=== PATIENT | female | born 1950 | race Caucasian/White ===

== ENCOUNTER 2025-04-15 09:37 | Outpatient (AMB) | payer MEDICARE, SELFPAY ==
--- OUTSIDE RECORDS SUMMARY | 2024-07-12 14:42 | XMS_ITS | Encounter Summary ---
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 Not on angel e 07/01/2024 Are you concerned about learning? Not on file 07/01/2024 No 07/01/2024 No 07/01/2024 Digital Access Answer Date Recorded No 07/01/2024 No 07/01/2024 Reliable internet access at home? Not on file 07/01/2024 Device with a working camera? Not on file Comments Unknown Sex and Gender Information Value Date Recorded Sex Assigned at Not on file Legal Sex Female 5:05 PM EST Gender Identity Not on file Sexual Orientation Not on file documented as of this encounter Plan of Treatment Not on file documented as of this encounter Procedures Procedure Name Priority Date/Time Associated Diagnosis Comments XR CHEST PA AND LATERAL 2 VIEWS Urgent/patient waiting 07/12/2024 3:49 PM EDT Viral upper respiratory tract infection with cough documented in this encounter Results * XR CHEST PA AND LATERAL 2 VIEWS (07/12/2024 3:49 PM EDT) Anatomical Region Laterality Modality Chest Computed Radiogr aphy 07/12/2024 4:00 PM EDT Impressions 07/12/2024 4:01 PM EDT No acute abnormality. Narrative 07/12/2024 4:01 PM EDT XR CHEST PA AND LATERAL 2 VIEWS Referring clinician's provided indication for this examination in [facility]: Cough; cough for a week, sob on exertion. states she sounds like a donkey COMPARISON: None FINDINGS: Devices/Tubes/Lines: None. Lungs: Biapical scarring. No focal consolidation or pulmonary edema. Pleura: No pleural effusion or pneumothorax. Heart/Mediastinum: Normal heart size. Bones/Soft Tissues: Prior right shoulder arthroplasty. Dextroscoliosis. Procedure Note Susan Mishra MD - 07/12/2024 XR CHEST PA AND LATERAL 2 VIEWS Referring clinician's provided indication for this examination in [facility]:Cough; cough for a week, sob on exertion. states she sounds like adonkey COMPARISON: None FINDINGS: Devices/Tubes/Lines: None. Lungs: Biapical scarring. No focal consolidation or pulmonary edema. Pleura: No pleural effusion or pneumothorax. Heart/Mediastinum: Normal heart size. Bones/Soft Tissues: Prior right shoulder arthroplasty. Dextroscoliosis. IMPRESSION: No acute abnormality. us Lanie Lala TOBACCO STRIPPER IMG XR CHEST Final Resul t documented in this encounter Visit Diagnoses Not on filedocumented in this encounter Care Teams Rail Car Welder Relationship Specialty Start Date End Date Pcp, Unknown PCP - General 07/01/24 DECLINES giving PCP information Primary Care Physician 07/01/24 documented as of this encounter Additional Source Comments The information contained in this document represents components of the legal health record. It is not the complete legal health record.[facility]
--- NOTE | 2025-04-15 09:43 | A.OFFPC_ITS ---
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: No Accompanied by: Self / Same As Patient Allergies No Known Allergies Allergy (Verified 04/15/25 09:48) Medication List - Last Reconciled 04/15/25 by Tesha Castorena MD No Known Home Meds Tobacco use date assessed: 04/15/25 Fall risk assessment: No Falls in past year Last assessed Fall Risk: 04/15/25 Dental Screening Dental Screen Date: 04/15/25 Did you have a dental visit in the last 12 months?: Yes Did you have a dental problem in the last 6 months where you did not have access to dental care?: No Was dental information given to patient?: Patient has dentist HPI HPI Comments History of Present Illness Details The patient is a 74 year old female presenting for an establishment of care and annual wellness visit. Health Risk Assessment completed. No cognitive deficits, no opioid use. Able to do clock draw. Health Maintenance: The patient is establishing care as her prior primary care provider of 20 years has retired. Her last mammogram was several years ago and her last Cologuard test was over five years ago. She has a history of fibrocystic breasts, which previously required ultrasound evaluation along with mammography. She has a history of breast cysts when she was younger that resolved after menopause. She declines a colonoscopy but is agreeable to Cologuard screening. Her last bone density scan was approximately 20 years ago. Heart Murmur: The patient had a heart murmur as a child. A few years ago, she was sent to a diesel engine operator due to an irregular EKG, which was ultimately attributed to an artifact. Her father had an aortic valve replacement. Osteoarthritis: The patient has a history of severe arthritis. She undergoes cortisone injections in her knees every three months for management. She had a total right shoulder replacement in 2008 for her shoulder arthritis. She describes her pain as zero to very mild and dependent on the weather. Chronic venous insufficiency: The patient has a history of venous insufficiency in her legs, for which she has had ablations and undergoes sclerotherapy injections every few years for maintenance. Medical History: - Arthritis - Venous insufficiency - Fibrocystic breast disease with a hist ory of breast cysts requiring drainage prior to menopause - Erb's palsy of the left arm, congenita l - History of reactive airways Surgical History: - Total right shoulder replacement - Several foot surgeries for bunion and toe realignment - Venous ablations for venous insufficie ncy Medications: - The patient reports she is on no curre nt medications. Social History: - Alcohol Use: Reports drinking one to t wo alcoholic beverages on holidays or when out to dinner, denies consistent use. - Tobacco Use: Denies smoking. - Exercise: Reports she is active but do es not go to a gym. - Occupation: She is retired from a 22-y ear career at [employer]. - Family and Social Support: She has quinn ghters, grandchildren, and great-grand children. - Functional Status: She is independent in all activities of daily living, including shopping, preparing meals, and housework. - Driving: She drives without any diffic ulty and always wears a seatbelt. Family History: - Mother: Hypertension and hyperlipidemi a in her 80s. - Father: Hypertension, prostate cancer, and history of aortic valve replacement. - Paternal Aunt: Colon cancer. - Paternal Grandmother: History of a bag shop worker ecological cancer, either ovarian or cervical. - Maternal Grandfather: Lung cancer with a history of smoking. - Daughter: Diabetes. Diagnostic Results: - Screening Questionnaires: PHQ-9 score was 0 and PRASHANTH-7 score was 0. - Cognitive Screen: Clock-drawing test w as normal. [facility] Medical History (Updated 04/15/25 @ 17:44 by Tesha Castorena MD) Family history of aortic valve disorder Murmur Venous insufficiency Asymptomatic postmenopausal state Osteoarthritis Routine medical exam History of cyst of breast Screening mammogram for breast cancer Surgical History (Updated 04/15/25 @ 10:37 by Tesha Castorena MD) History of right shoulder replacement H/O foot surgery Family History (Updated 04/15/25 @ 10:26 by Tesha Castorena MD) Paternal Aunt Colon cancer Maternal Grandfather Lung cancer Other Aortic valve replaced Gynecologic cancer Mixed hyperlipidemia Primary hypertension Social History Housing: House Patient Tobacco Use Status: Never used Tobacco e-Cigarette/Vaping Use: Never Used service: No Current occupational status: retired Questionnaire PHQ-9 Over the last 2 weeks, how often have you been bothered by any of the following problems? 1. Little interest or pleasure in doing things: not at all 2. Feeling down, depressed, or hopeless: not at all 3. Trouble falling or staying asleep, or sleeping too much: not at all 4. Feeling tired or having little energy: not at all 5. Poor appetite or overeating: not at all 6. Feeling bad about yourself - or that you are a failure or have let yourself or your family down: not at all 7. Trouble concentrating on things, such as reading the newspaper or watching television: not at all 8. Moving or speaking so slowly that other people could have noticed. Or the opposite - being so fidgety or restless that you have been moving around a lot more than usual: not at all 9. Thoughts that you would be better off or of hurting yourself in some way: not at all Total score: 0 Depression Screening Interpretation: Negative Depression Screening Done: Yes 49608 - PHQ-9 Billing: Yes Source: Developed by Drs. Abran Galvan, Lisseth Holcomb, Fausto Calvert and colleagues, with an educational fermín from [employer]. Thrive Questionnaire Date Thrive assessed: 04/15/25 I am a: Patient What is your living situation today?: I have a steady place to live Within the past 12 months, did the food you bought not last and you didn't have the money to get more?: Never true Within the past 12 months, did you worry whether your food would run out before you got money to buy more?: Never true Do you have trouble paying for medicines?: No Do you have trouble getting transportation to medical appointments?: No Do you have trouble paying your heating and electricity bill?: I choose not to answer this question Do you have trouble taking care of your child, family member or friend?: No Do you have trouble with day-to-day activities such as bathing, preparing meals, shopping, managing finances, etc.?: No Are you currently unemployed and looking for a job?: No Are you interested in more education?: No Please select the resources that you would like help with: None Currently or been in a relationship where the following occur: No concerns reported THRIVE Score: 0 AUDIT C Alcohol Use Questionnaire (AUDIT-C) 1. How often do you have a drink containing alcohol?: Monthly or less 2. How many drinks containing alcohol do you have on a typical day when you are drinking?: 1 or 2 3. How often do you have six or more drinks on one occasion?: Never Total Score: 1 PRASHANTH-7 AMB Questionnaire PRASHANTH-7 Date PRASHANTH - 7 assessed: 04/15/25 Feeling nervous, anxious, or on edge: 0 = Not at all Not being able to stop or control worryin = Not at all Worrying too much about different things: 0 = Not at all Trouble relaxin = Not at all Being so restless that it is hard to sit still: 0 = Not at all Becoming easily annoyed or irritable: 0 = Not at all Feeling afraid as if something awful might happen: 0 = Not at all Total PRASHANTH-7 score (0-4 normal; 5-9 mild; 10-14 moderate; 15-21 severe): 0 Source: Developed by Drs. Abran Galvan, Lisseth Holcomb, Fausto Calvert and colleagues, with an educational fermín from [employer]. Review of Systems Narrative Review of Systems - General: Denies falls. - HEENT: Reports good vision with the use of reading glasses. Denies having dentures. - Cardiovascular: Denies chest pain, shortness of breath, and leg swelling when specifically questioned about these symptoms - Gastrointestinal: Reports difficulty swallowing pills but denies difficulty swallowing food. - Psychiatric: Denies symptoms of depression or anxiety. - Musculoskeletal: Reports zero to very mild pain, which can be weather- dependent. Physical exam (Primary Care) Vital Signs: Last Vital Signs Temp 97.1 F 04/15/25 09:46 Pulse 75 04/15/25 09:46 Resp 16 04/15/25 09:46 BP 124/70 04/15/25 09:46 Pulse Ox 98 04/15/25 09:46 Oxygen Delivery Method Room Air 04/15/25 09:46 BMI result Body Mass Index 22.0 Tobacco/Smoking Status: Tobacco use Status Tobacco use date assessed 04/15/25 04/15/25 09:52 Patient Tobacco Use Status Never used Tobacco 04/15/25 09:52 e-Cigarette/Vaping Use Never Used 04/15/25 09:52 PHQ-9: PHQ-9 Score PHQ-9: Total score 0 04/15/25 10:39 Depression Screening Interpretation: Negative Thrive Assessment: Date of Thrive Assessment Date Thrive assessed 04/15/25 04/15/25 09:52 Currently or been in a relationship where the following occur: No concerns reported Narrative Physical Exam - Gen: NAD - HEENT: Ears are clear. Oropharynx is non-erythematous. - Neck: Carotid arteries are clear to auscultation bilaterally with no bruits. - Lungs: Clear to auscultation bilaterally, no wheezing noted. - Cardiovascular: grade II/ murmur across precordium - Abdomen: Bowel sounds are normal. Abdomen is soft, non-tender, and non- distended. - Extremities: Trace edema is present in the lower extremities. - Neurological: A clock-drawing test was performed correctly. Coding Level of Care Code Add On Preventative Visit Only Diagnoses Routine medical exam Z00.00 Osteoarthritis of multiple joints, unspecified osteoarthritis type M15.9 Osteoarthritis location: multiple joints Osteoarthritis type: unspecified Murmur R01.1 Additional Codes PHQ-9 - 65758 - PHQ-9 Billing: Yes ([id number]) Comment add [id number] SUBSEQUENT ANNUAL WELLNESS VISIT CODE Assessment & Plan Assessment & Plan (1) Routine medical exam: Code(s): Z00.00 - Encounter for general adult medical examination without abnormal findings Category: Medical (2) Osteoarthritis: Code(s): M19.90 - Unspecified osteoarthritis, unspecified site Category: Medical Qualifiers: Osteoarthritis location: multiple joints Osteoarthritis type: unspecified Qualified Code(s): M15.9 - Polyosteoarthritis, unspecified (3) Murmur: Code(s): R01.1 - Cardiac murmur, unspecified Category: Medical Plan Assessment and Plan 1. Annual Wellness Visit/Health Maintenance - The patient is a 74-year-old female establishing care and is due for several health screenings. - Plan includes: a) Ordering fasting labs including a CBC, CMP, thyroid panel, lipid panel, and fasting glucose - b) Ordering a Cologuard test for colon cancer screening, as the patient declines colonoscopy. - c) Ordering a screening mammogram and bilateral breast ultrasound due to her history of fibrocystic breasts. - d) Ordering a bone density (DEXA) scan, indicated due to her age and history of recurrent cortisone injections. 2. Heart Murmur - An echocardiogram will be ordered to establish a baseline and evaluate cardiac valve structure and function. - The patient was educated on warning signs, including chest pain, shortness of breath, and leg swelling. 3. Osteoarthritis and Venous Insufficiency - The patient's chronic conditions, including knee osteoarthritis managed with cortisone shots and venous insufficiency managed with periodic sclerotherapy, appear stable. - She will continue her current management with her respective specialists. - The plan to obtain a DEXA scan is partly to monitor for skeletal side effects of chronic steroid use. 4. Follow-up Care - A follow-up appointment is scheduled in approximately 6 months Plan - Will order fasting labs including CBC, CMP, lipid panel, thyroid panel, and fasting glucose. - Will order a Cologuard kit to be mailed to the patient for colon cancer screening. - Will order a screening mammogram and a bilateral breast ultrasound. - Will order a bone density scan (DEXA). - Will order an echocardiogram to evaluate the heart murmur. Patient Instructions - Please go to the lab to have your blood drawn for the ordered tests. You should fast beforehand. - A Cologuard kit for colon cancer screening will be mailed to you. Please com plete the test and return it as instructed. - Please schedule an appointment for a mammogram, breast ultrasound, and bone density scan. Orders: Orders US breast LT limited Today Z12.31 - Encounter for screening mammogram for malignant neoplasm of breast, Z87.2 - Personal history of diseases of the skin and subcutaneous tissue Complete Blood Count Auto Diff Today Z00.00 - Encounter for general adult medical examination without abnormal findings Lipid Panel Today Z00.00 - Encounter for general adult medical examination without abnormal findings TSH reflex Free T4 Today Z00.00 - Encounter for general adult medical examination without abnormal findings XR DEXA axial skeleton Today Z78.0 - Asymptomatic menopausal state MM screening mammo BI Today Z12.31 - Encounter for screening mammogram for malignant neoplasm of breast US breast RT limited Today Z12.31 - Encounter for screening mammogram for malignant neoplasm of breast, Z87.2 - Personal history of diseases of the skin and subcutaneous tissue Comprehensive Met. Panel Today Z00.00 - Encounter for general adult medical examination without abnormal findings CA echo transthoracic complete Today R01.1 - Cardiac murmur, unspecified, Z82.49 - Family history of ischemic heart disease and other diseases of the circulatory system Referrals Cologuard Test Z12.11 - Encounter for screening for malignant neoplasm of colon, Z12.12 - Encounter for screening for malignant neoplasm of rectum
[2025-04-15 09:46] VITALS: BP 124/70; PULSE 75; RESP 16; TEMP 36.2; O2SAT 98; BMI 22.0
--- OUTSIDE RECORDS SUMMARY | 2025-04-15 11:09 | XMS_ITS | Data Portability ---
Author Organization [facility], [facility] Address [address] [place] [address] Assessment No assessment recorded. Plan of Treatment Reminders Order Date Submit Date Provider Last Modified By Organization Details Last Modified Time Details Appointments RECHECK 15 2025 09:15A Jose London PA-C Not available Not available Not available Lab None recorded . Referral None recorded . Procedures None recorded . Surgeries None recorded . Imaging None recorded . Medication Orders None recorded . Patient TargetsNo targets recorded. Patient InstructionsNo instructions recorded. Reason for Referral None Reported. Problems Name Problem SNOMED Code Status Onset Date Resolution Date Notes Provider Name and Address Organization Details Recorded Time No complaints [id number] Active Status : 'A'; Not Available [facility] 4 09:15:58 Osteoarthr itis of left knee joint 8030969046498 09 Active 2023 Triny Ferguson PA-C [address], [place], [address] , [facility] 4 12:20:05 Osteoarthr itis of right knee joint 2674044974428 00 Active 2023 Triny Ferguson PA-C [address], [place], [address] , [facility] 4 13:44:36 Bilateral osteoarthr itis of knees 0993223222422 07 Active 2023 Triny Ferguson PA-C [address], [place], [address] , [place] - [facility] 11:59:34 Primary gonarthros is, bilateral 756411516 Active 2024 Triny Ferguson PA-C [address], [place], [address] , [facility] 11:38:09 Problem Notes None recorded. Procedures Surgical History Date Name Laterality Status Provider Name and Address Organization Details Recorded Time 5 Knee Kenalog 40 1cc Injection, Bilateral completed Rodrick London PA-C [address], [place], [address], [facility] 02/18/2025 20:54:06 5 Knee Kenalog 40 1cc Injection, Bilateral completed Triny Ferguson PA-C [address], [place], [address], [facility] 11/06/2024 14:23:54 5 Knee Kenalog 40 1cc Injection, Bilateral completed Triny Ferguson PA-C [address], [place], [address], [facility] 08/07/2024 12:46:48 5 Knee Kenalog 40 1cc Injection, Bilateral completed Triny Ferguson PA-C [address], [place], [address], [facility] 05/15/2024 11:37:52 4 Knee Kenalog 40 1cc Injection, Bilateral completed Triny Ferguson PA-C [address], [place], [address], [facility] 02/05/2024 11:59:27 4 Knee Kenalog 40 1cc Injection, Bilateral completed Triny Ferguson PA-C [address], [place], [address], [facility] 11/07/2023 13:45:40 4 Knee Kenalog 40 1cc Injection, Bilateral completed Triny Ferguson PA-C [address] [facility] [address], [place], [address], [facility] - [facility] 08/17/2023 10:27:46 Imaging Results None recorded. Procedure Notes None recorded. Medical Equipment None Reported. Allergies No known drug allergies Medications Name Sig Start Date Stop Date Status Note LastModified by Organization Details LastModified Time amoxicillin 500 mg capsule TAKE 4 CAPSULES ONE HOUR PRIOR TO DENTAL PROCEDURE 08/16 completed Not Available Not Available Not Available amoxicillin 500 mg tablet TAKE 4 TABLETS BY MOUTH 1 HOUR PRIOR TO DENTAL PROCEDURE active Not Available Not Available No t Available oxycodone-a cetaminophe n 5 mg-325 mg tablet TAKE 1 TABLET BY MOUTH EVERY 6 HOURS NEEDED FOR PAIN 02/07 completed Not Available Not Available Not Available cephalexin 500 mg capsule TAKE 1 CAPSULE BY MOUTH TWICE DAILY FOR 7 DAYS active Not Available Not Available No t Available Tylenol 325 mg tablet Take 2 tablets every 6 hours by oral route. active Not Available Not Available No t Available gabapentin 100 mg capsule TAKE 1 CAPSULE BY MOUTH EVERY DAY AT BEDTIME 02/07 completed Not Available Not Available Not Available albuterol sulfate HFA 90 mcg/actuati on aerosol inhaler INHALE 2 PUFFS INTO THE LUNGS EVERY 4 HOURS NEEDED FOR WHEEZING active Not Available Not Available No t Available amoxicillin 500 mg-potassiu m clavulanate 125 mg tablet TAKE 1 TABLET BY MOUTH TWICE DAILY active Not Available Not Available No t Available oxycodone 5 mg tablet TAKE 1 TABLET BY MOUTH EVERY 4 HOURS NEEDED FOR PAIN 08/16 completed Not Available Not Available Not Available nitrofurant oin monohydrate /macrocryst als 100 mg capsule TAKE 1 CAPSULE BY MOUTH TWICE DAILY TAKE PROBIOTIC 2 HOURS AFTER EACH DOSE OF ANTIBIOTI C 02/16 completed Not Available Not Available Not Available oxycodone HCl-oxycodo ne-ASA as directed 1 TALET Q 4 HOURS PRN PAIN DO NOT DRIVE WHILE ON THIS MED 07/31 completed Statu s: 'Disc ontin ued'; Not Available Not Available Not Available Vitals Date Recorded Body height Body mass index (BMI) Body weight Provider Name and Address Organization Details Last Updated DateTime 05/16/2024 177.8 cm 20.9 kg/m2 20306.49 g Vernell osvaldo [facility] 05/16/2024 11:20:14 Date Recorded Body height Body mass index (BMI) Body weight Provider Name and Address Organization Details Last Updated DateTime 08/07/2024 177.8 cm 20.9 kg/m2 32480.49 g Astrid Pedro [facility] 08/07/2024 14:53:32 Date Recorded Body height Body mass index (BMI) Body weight Provider Name and Address Organization Details Last Updated DateTime 11/06/2024 177.8 cm 20.8 kg/m2 05786.89 g PATRICIA CHAVEZ [facility] 11/06/2024 13:49:57 Date Recorded Body height Body mass index (BMI) Body weight Provider Name and Address Organization Details Last Updated DateTime 02/08/2024 177.8 cm 20.9 kg/m2 56109.49 g Vernell richellekeithalis [facility] 02/08/2024 10:50:16 Date Recorded Body height Body mass index (BMI) Body weight Provider Name and Address Organization Details Last Updated DateTime 02/19/2025 177.8 cm 20.8 kg/m2 47950.89 g Rodrick London PA-C [address] [place] [address] [address], [place], [address] 02/19/2025 08:32:40 Social History Question Answer Notes LastModified by [employer] Details LastModified Time Tobacco Smoking Status Never Smoker ANA fulton [facility] 08/17/2023 09:55:30 Have You Ever Been Counseled For Unhealthy Alcohol Use? No Information not available 08/17/2023 What Is Your Relationship Status? Information not available 08/17/2023 Sex: Unknown Functional Status Question Answer Note LastModified by [email or web address] Details LastModified Time How many times per week do you consume alcohol? Less than 1 time per week Information not available 08/17/2023 Do you use any illicit or recreational drugs? No Information not available 08/17/2023 Do you or have you ever used any other forms of tobacco or nicotine? No Information not available 08/17/2023 What is your level of alcohol consumption? Occasional Information not available 08/17/2023 Mental Status None recorded. Family History Nothing Reported. Medical History Condition Response Allergies/Hayfever N Coronary Artery Disease N Anxiety/Depression N Emphysema N Thyroid Problems N COPD N Pacemaker N Anemia N Kidney/Bladder Problems N Vascular Disease N Heart Attack (ND) N Gastrointestinal Disease N Diabetes N Autoimmune disease N Bleeding Disorder N Orthotics N Arthritis Y Seizures/Epilepsy N Blood Clot N AIDS/HIV N Congestive Heart Failure (CHF) N Acid Reflux (GERD) N Cancer N Stroke N Asthma N Peripheral Vascular Disease N Sleep Apnea N Hepatitis N Heart Disease N Rheumatoid Arthritis N Arrhythmia N Pulmonary Embolism N Fibromyalgia N Hypertension N Osteoporosis N Gynecological HistoryNo gynecological history recorded. Obstetrics History GPAL:G 0 P 0 0 0 0 Past Encounters Encounter ID Performer Location Encounter Start Date Encounter Closed Date Diagnosis/Indication Diagnosis SNOMED-CT Code Diagnosis ICD10 Code Diagnosis IMO Codes Diagnosis Note [id number] [facility] [address] [facility] [place] [place] [address] 08/17/2023 09:48:35 09/06/2023 14:12:23 Osteoarthritis of left knee joint 1241679900 71826 M17.12 Nature of the diagnosis discussed with the patient today. Both surgical and nonsurgica l options were reviewed. At this point I have recommende d a repeat cortisone injection. Patient agrees with this plan. Patient tolerated the procedure well. Post injection precaution s reviewed. They will continue with conservati ve modalities including icing and elevating. Follow-up with us in 3 months for discussion of continued conservati ve management versus total joint arthroplas ty. Pain of ri t knee joint [id number] 43932 M25.561 Will perform right knee injection as well today. Has notable right knee osteoarthr itis. Also noted on her previous left knee x-rays. Discussed that if injection does not alleviate her symptoms she is to contact me and schedule follow-up visit for workup of her right knee pain. All questions and concerns were addressed and answered. [id number] WANDA Olea [address] [place] [address] 11/07/2023 13:05:32 12/04/2023 14:29:11 Osteoarthritis of left knee joint [id number] 73838 M17.12 Nature of the diagnosis discussed with the patient today. Both surgical and nonsurgica l options were reviewed. At this point I have recommende d a repeat cortisone injection. Patient agrees with this plan. Patient tolerated the procedure well. Post injection precaution s reviewed. They will continue with conservati ve modalities including icing and elevating. Follow-up with us in 3 months for discussion of continued conservati ve management versus total joint arthroplas ty. Reviewed with her that she has advanced lateral compartmen t right knee osteoarthr itis which has substantia lly progressed since her previous radiograph s. This is likely what is causing her lateral sided right knee pain. She could also have subchondra l insufficie ncy fracture but treatment will remain the same. He recommende d hinged knee brace for stability purposes. Did also discuss utility of employment and claims aide brace for symptomati c relief but she feels that this might be too cumbersome and she would like to try with less invasive hinged knee brace first. Prescripti on was provided today. We did briefly review utility of moving forward with referral for total joint replacemen t but she is not yet ready to pursue this. All questions and concerns were addressed and answered. Osteoarthr itis of right knee joint [id number] 07981 M17.11 [id number] Triny Ferguson PA-C [facility] [address] [place] [address] 02/08/2024 10:43:28 03/05/2024 12:28:38 Bilateral osteoarthritis of knees [id number] 97017 M17.0 Nature of the diagnosis discussed with the patient today. They are having an acute exacerbati on of symptoms including pain, swelling and difficulty participat ing in ADL's. Both surgical and nonsurgica l options were reviewed. Conservati ve treatment options including activity modificati on, low impact exercise program such as swimming, stationary biking, swimming or rowing, physical therapy, NSAIDs, and injections were discussed. At this point patient elects to move forward with a repeat cortisone injection. Patient tolerated the procedure well. Post injection precaution s reviewed. They will continue with conservati ve modalities including icing and elevating. Follow-up with us as symptoms dictate for discussion of continued conservati ve management options versus total joint arthroplas ty. [id number] WANDA Olea [facility] on Clinical [address] [facility] [place] [address] 05/16/2024 11:14:57 05/27/2024 10:03:58 Primary gonarthrosis, bilateral 030659106 M17.0 [id number] Nature of the diagnosis discussed with the patient today. They are having an acute exacerbati on of symptoms including pain, swelling and difficulty participat ing in ADL's. Both surgical and nonsurgica l options were reviewed. Conservati ve treatment options including activity modificati on, low impact exercise program such as swimming, stationary biking, swimming or rowing, physical therapy, NSAIDs, and injections were discussed. At this point patient elects to move forward with a repeat cortisone injection. Patient tolerated the procedure well. Post injection precaution s reviewed. They will continue with conservati ve modalities including icing and elevating. Follow-up with us as symptoms dictate for discussion of continued conservati ve management options versus total joint arthroplas ty. [id number] WANDA Olea [address] [place] [address] 08/07/2024 14:46:09 08/20/2024 10:04:53 Primary gonarthrosis, bilateral [id number] M17.0 [id number] Nature of the diagnosis discussed with the patient today. They are having an acute exacerbati on of symptoms including pain, swelling and difficulty participat ing in ADL's. Both surgical and nonsurgica l options were reviewed. Conservati ve treatment options including activity modificati on, low impact exercise program such as swimming, stationary biking, swimming or rowing, physical therapy, NSAIDs, and injections were discussed. At this point patient elects to move forward with a repeat cortisone injection. Patient tolerated the procedure well. Post injection precaution s reviewed. They will continue with conservati ve modalities including icing and elevating. Follow-up with us as symptoms dictate for discussion of continued conservati ve management options versus total joint arthroplas ty. She has tried various over-the-c ounter remedies for her left SI joint pain and is now to the point where is affecting her ambulation status. Will refer her to [facility] for further workup and considerat ion of injections . [id number] WANDA Olea [address] [place] [place] [address] 11/06/2024 13:45:34 11/17/2024 12:32:47 Bilateral osteoarthritis of knees [id number] 55087 M17.0 Nature of the diagnosis discussed with the patient today. They are having an acute exacerbati on of symptoms including pain, swelling and difficulty participat ing in ADL's. Both surgical and nonsurgica l options were reviewed. Conservati ve treatment options including activity modificati on, low impact exercise program such as swimming, stationary biking, swimming or rowing, physical therapy, NSAIDs, and injections were discussed. At this point patient elects to move forward with a repeat cortisone injection. Patient tolerated the procedure well. Post injection precaution s reviewed. They will continue with conservati ve modalities including icing and elevating. Follow-up with us as symptoms dictate for discussion of continued conservati ve management options versus total joint arthroplas ty. [id number] WANDA R[address] [place] [address] 02/19/2025 08:24:46 03/06/2025 14:48:57 Primary gonarthrosis, bilateral [id number] M17.0 [id number] Health Concerns Section Related Observation LastModified by Organization Detai ls LastModified Time None Recorded Concern Status LastModified by Organization Details LastModified Time None Recorded Advance Directives Directive None Recorded Payers Insurance Date Sequence Insurance Name Policy Number Policy Riggins Covered Member ID Riggins Member ID Guarantor Name 03/06/2025 2 [place] [id number] Korina Kaufman [id number] Korina Kaufman 02/19/2025 1 [place] Korina Bryatnstock [id number] Korina Kaufman 02/16/2025 [employer] - SPECIALITY CLAIMS (MEDICARE DME REGION A) Korina Bryantstock [id number] Korina Kaufman Notes Date Note Type Note Provider Name and Address Organization Details Recorded Time 02/08/2024 text/html ROS as noted in the HPI I am seeing the patient under the general supervision of Dr. Donahue who was available but who did not see the patient. HPI: Patient presents today for recheck of bilateral knee osteoarthritis. Is known to have arthritis treated conservatively with intermittent cortisone injections every 3 months as needed. No new injury or modalaties. Last injection(s) were 11/07/23. She has continued to have intermittent severe lateral sided right knee pain. Triny Ferguson PA-C [address], [place], [address], [facility] 02/08/2024 11:17:10 05/16/2024 text/html ROS as noted in the HPI I am seeing the patient under the general supervision of Dr. Donahue who was available but who did not see the patient. HPI: Patient presents today for recheck of bilateral knee osteoarthritis. Is known to have arthritis treated conservatively with intermittent cortisone injections every 3 months as needed. No new injury or modalaties. Last injection(s) were 02.08.24. She has continued to have intermittent severe lateral sided right knee pain. Triny Ferguson PA-C [address], [place], [address], [facility] 05/16/2024 11:23:50 08/07/2024 text/html ROS as noted in the HPI I am seeing the patient under the general supervision of Dr. Donahue who was available but who did not see the patient. HPI: Patient presents today for recheck of bilateral knee osteoarthritis. Is known to have arthritis treated conservatively with intermittent cortisone injections every 3 months as needed. No new injury or modalaties. Last injection(s) were 05/16/24. She has continued to have intermittent severe lateral sided right knee pain. She is also reporting worsening left sided SI joint pain. HAN OleaC [address], [place], [address], [facility] 08/07/2024 15:31:55 11/06/2024 text/html ROS as noted in the HPI I am seeing the patient under the general supervision of Dr. Donahue who was available but who did not see the patient. HPI: Patient presents today for recheck of bilateral knee osteoarthritis. Is known to have arthritis treated conservatively with intermittent cortisone injections every 3 months as needed. No new injury or modalaties. Last injection(s) were 08/07/24. She has continued to have intermittent severe lateral sided right knee pain. She is also reporting worsening left sided SI joint pain. Triny Ferguson PA-C [address], [place], [address], [facility] 11/06/2024 14:24:35 02/19/2025 text/html I am seeing the patient today under the supervision of Dr. Mon who was available but who did not see the patient. HPI: Patient returns for follow-up of Bilateral knee pain. Patient has known arthritis of the Bilateral knee. The patient has been doing well with conservative treatment. Past family, medical, social history and review of systems has been reviewed, updated and is located in the patient s chart. Examination: The patient is well appearing and in no apparent distress. Alert and oriented x3. Gait is symmetric. Mild swelling of the both knees. Range of motion of the both knees is flexion to 120. Full internal and external rotation of the hips without pain. Peripheral, vascular, lymphatic examination, skin, neurological, coordination, reflexes, sensation are within normal limits. Impression: Bilateral Knee arthritis.. Plan: Reviewed diagnosis with the patient today in the office. Given this amount of arthritis in the knee recommended conservative management. Activity modification discussed. P.r.n. NSAIDs can be used. Discussed role of injection therapies both cortisone and viscosupplementation . Today, injected both the knees with cortisone. Reviewed home exercise program. Patient can return for injections every 3 months if necessary. Briefly discussed the role of total joint arthroplasty if and when conservative management fails and x-ray evaluation worsens. Follow-up p.r.n. Rodrick London PA-C [address], [place], [address], [facility] 02/19/2025 08:58:48 OBGyn Episode No OBEpisode recorded.
--- OUTSIDE RECORDS SUMMARY | 2025-04-15 11:09 | XMS_ITS | Clinical Summary ---
Author Organization [facility] Address [address] [address] Phone Care Team Providers Care Deputy Insurance Commissioner Name Role Phone Pcp, Unknown Primary Care Provider Unavailabl e Allergies Active Allergy Reactions Criticality Noted Date Comments Other 07/12/2024 Other Reaction(s): apricots - SOB Medications albuterol (PROAIR HFA) 90 mcg/actuation inhaler Inhale 2 puffs into the lungs every 4 (four) hours as needed for wheezing. 18 g 5 Active Additional Information Patient not taking.Reported on 12/15/2024 benzonatate (TESSALON) 100 MG capsule Take 2 capsules (200 mg total) by mouth 3 (three) times a day as needed for cough. 21 capsule 5 Active Additional Information Patient not taking.Reported on 12/15/2024 inhaler spacing device (AEROCHAMBER,BR EATHERITE) Spcr Inhale 1 each into the lungs every 4 (four) hours as needed (with inhaler). 1 each 5 Active Additional Information Patient not taking.Reported on 12/15/2024 Active Problems No known active problems Immunizations Immunization Administration Dates Next Due COVID-19 (Pre-02/19) Pfizer Vaccine, mRNA, PF 01/11/2021,12/21/2020 Pneumococcal polysaccharide PPSV23 10/30(Deferred: Other - does not meet criteria) Social History Tobacco Use Types Packs/Day Years Used Date Smoking Tobacco: Never Smokeless Tobacco: Never Tobacco Cessation:Counseling Given: Not Answered Education Answer Date Recorded Are you interested [...] on file Sexual Orientation Not on file Last Filed Vital Signs Vital Sign Reading Time Taken Comments Blood Pressure 123/71 12/15/2024 2:12 PM EDT Pulse 72 12/15/2024 2:12 PM EDT Temperature 36.9 C (98.5 F) 12/15/2024 2:12 PM EDT Respiratory Rate 15 12/15/2024 2:12 PM EDT Oxygen Saturation 99% 12/15/2024 2:12 PM EDT Inhaled Oxygen Concentration - - Weight 65.8 kg (145 lb) 12/15/2024 2:12 PM EDT Height 177.8 cm (5' 10 ) 12/15/2024 2:12 PM EDT Body Mass Index 20.81 12/15/2024 2:12 PM EDT Plan of Treatment Health Maintenance Due Date Last Done Comments Adult Td,Tdap Booster 1950 LIPID PANEL 1950 DEPRESSION SCREENING 1963 HEPATITIS C SCREENING 11/15/1969 COLOGUARD 11/15/1996 COLONOSCOPY 11/15/1996 COLORECTAL CANCER SCREENING 11/15/1996 FIT TEST 11/15/1996 FOBT 11/15/1996 SIGMOIDOSCOPY 11/15/1996 VIRTUAL COLONOSCOPY 11/15/1996 PNEUMOCOCCAL VACCINES (50+ years) (1 of 1 - PCV) 11/15/2001 ZOSTER VACCINES (1 of 2) 11/15/2001 MAMMOGRAM 09/16/2010 09/16/2008 OSTEOPOROSIS SCREENING INITIAL (ONE-TIME) 11/15/2016 INFLUENZA VACCINE (#1) 2024 3, 03/06/2022, 02/18/2021, Additional history exists COVID-19 VACCINE (3 - 2024- season) 2024 01/11/2021, 12/21/2020 RSV VACCINE (1 - 1-dose 75+ series) 11/15/2026 SMOKING STATUS SCREENING (Once After 26 Yrs) Completed 12/15/2024 HEPATITIS A VACCINES Aged Out No long er eligible based on patient's age to complete this topic HIB VACCINES Aged Out No longer eligi ble based on patient's age to complete this topic MENINGOCOCCAL VACCINES (ACWY) Aged Out No longer eligible based on patient's age to complete this topic MENINGOCOCCAL VACCINES (B) Aged Out N o longer eligible based on patient's age to complete this topic Medical Devices Not on file Procedures Procedure Name Priority Date/Time Associated Diagnosis Comments BI MAMMOGRAM OUTSIDE Routine 09/16/2008 4:05 PM EDT from Last 3 Months or Most Recently Relevant to Health Maintenance Insurance MEDICARE PART A & B [employer] SUPPLEMENT MEDICARE PART A & B [place] MED[employer] SUPPLEMENT MEDICARE PART A & B [employer] MED[employer] SUPPLEMENT MEDICARE PART A & B [facility] MEDEX SUPPLEMENT MEDICARE PART A & B [employer] MED[employer] SUPPLEMENT MEDICARE PART A & B [employer] MEDEX SUPPLEMENT Care Teams Deputy Insurance Commissioner Relationship Specialty Start Date End Date Pcp, Unknown PCP - General 07/01/24 DECLINES giving PCP information Primary Care Physician 07/01/24 Additional Source Comments The information contained in this document represents components of the legal health record. It is not the complete legal health record.[facility]
--- OUTSIDE RECORDS SUMMARY | 2025-04-15 11:09 | XMS_ITS | Encounter Summary ---
Author Organization [employer] [facility] Address [address] [facility] [address] [place] [address] Phone Care Team Providers Care Seater Assembler Name Role Phone Pcp, Unknown Primary Care Provider Unavailabl e Encounter Details Date Type Department Care Team (Latest Contact Info) Description 09/20/2024 Ancillary Orders [facility], X-Ray - [address] [address] Michelle Benoit PA [address] [place] [address] [email or web address] Sacrococcygeal disorders, not elsewhere classified (Primary Dx) Social History Tobacco Use Types Packs/Day Years Used Date Smoking Tobacco: Never Assessed Education Answer Date Recorded Are you interested [...] on file documented as of this encounter Results * XR Sacrum and Coccyx (09/20/2024 9:06 AM EDT) Anatomical Region Laterality Modality L-spine Computed Radiogr aphy 09/23/2024 10:4 9 AM EDT Impressions 09/23/2024 10:51 AM EDT No acute displaced fracture or dislocation. Spondylitic changes described above. If there is a clinical concern for disc herniation or spinal canal stenosis MRI can be considered Narrative 09/23/2024 10:51 AM EDT XR LUMBOSACRAL SPINE 4 OR MORE VIEWS, XR SACRUM AND COCCYX Referring clinician's provided indication for this examination in [place]: Pain COMPARISON: None FINDINGS: Lumbar spine: Levoconvex in the upper lumbar spine. There is trace retrolisthesis of L1 on L2. Vertebral body heights are maintained. Mild endplate ossified is seen throughout the lumbar spine. There is diffuse disc space narrowing greatest at L5-S1 and L1-2. Sacrum and coccyx. No acute displaced fracture. There is some air and stool overlying the sacrum and coccyx on frontal view obscured fine bony detail. There are some degenerative changes in the SI joints and pubic symphysis. There are degenerative changes both hips right greater than left Procedure Note Marvel Zuñiga MD - 09/23/2024 XR LUMBOSACRAL SPINE 4 OR MORE VIEWS, XR SACRUM AND COCCYX Referring clinician's provided indication for this examination in [place]:Pain COMPARISON: None FINDINGS: Lumbar spine: Levoconvex in the upper lumbar spine. There is traceretrolisthesis of L1 on L2. Vertebral body heights are maintained. Mildendplate ossified is seen throughout the lumbar spine. There is diffusedisc space narrowing greatest at L5-S1 and L1-2. Sacrum and coccyx. No acute displaced fracture. There is some air andstool overlying the sacrum and coccyx on frontal view obscured fine bonydetail. There are some degenerative changes in the SI joints and pubicsymphysis. There are degenerative changes both hips right greater thanleft IMPRESSION: No acute displaced fracture or dislocation. Spondylitic changes described above. If there is a clinical concern for disc herniation or spinal canalstenosis MRI can be considered us Michelle DAVIS IMG XR SPINE Final Result * XR LUMBOSACRAL SPINE 4 OR MORE VIEWS (09/20/2024 9:05 AM EDT) Anatomical Region Laterality Modality L-spine Computed Radiogr aphy 09/23/2024 10:4 9 AM EDT Impressions 09/23/2024 10:51 AM EDT No acute displaced fracture or dislocation. Spondylitic changes described above. If there is a clinical concern for disc herniation or spinal canal stenosis MRI can be considered Narrative 09/23/2024 10:51 AM EDT XR LUMBOSACRAL SPINE 4 OR MORE VIEWS, XR SACRUM AND COCCYX Referring clinician's provided indication for this examination in [place]: Pain COMPARISON: None FINDINGS: Lumbar spine: Levoconvex in the upper lumbar spine. There is trace retrolisthesis of L1 on L2. Vertebral body heights are maintained. Mild endplate ossified is seen throughout the lumbar spine. There is diffuse disc space narrowing greatest at L5-S1 and L1-2. Sacrum and coccyx. No acute displaced fracture. There is some air and stool overlying the sacrum and coccyx on frontal view obscured fine bony detail. There are some degenerative changes in the SI joints and pubic symphysis. There are degenerative changes both hips right greater than left Procedure Note Marvel Zuñiga MD - 09/23/2024 XR LUMBOSACRAL SPINE 4 OR MORE VIEWS, XR SACRUM AND COCCYX Referring clinician's provided indication for this examination in Epic:Pain COMPARISON: None FINDINGS: Lumbar spine: Levoconvex in the upper lumbar spine. There is traceretrolisthesis of L1 on L2. Vertebral body heights are maintained. Mildendplate ossified is seen throughout the lumbar spine. There is diffusedisc space narrowing greatest at L5-S1 and L1-2. Sacrum and coccyx. No acute displaced fracture. There is some air andstool overlying the sacrum and coccyx on frontal view obscured fine bonydetail. There are some degenerative changes in the SI joints and pubicsymphysis. There are degenerative changes both hips right greater thanleft IMPRESSION: No acute displaced fracture or dislocation. Spondylitic changes described above. If there is a clinical concern for disc herniation or spinal canalstenosis MRI can be considered Michelle DAVIS IMG XR SPINE Final Result documented in this encounter Visit Diagnoses Diagnosis Sacrococcygeal disorders, not elsewhere classified- Primary Sacrococcygeal disorders, not elsewhere classified Sacrococcygeal disorders, not elsewhere classified documented in this encounter Care Teams Seater Assembler Relationship Specialty Start Date End Date Pcp, Unknown PCP - General 07/01/24 DECLINES giving PCP information Primary Care Physician 07/01/24 documented as of this encounter Additional Source Comments The information contained in this document represents components of the legal health record. It is not the complete legal health record.[facility]
--- OUTSIDE RECORDS SUMMARY | 2025-04-15 11:09 | XMS_ITS | Clinical Summary ---
Author Organization [facility] Address [address] [place] [phone] Phone Care Team Providers Care Gis Developer Name Role Phone Physician, No Pcp Primary Care Provider Unavaila ble Allergies No known active allergies Medications No known medications Active Problems No known active problems Surgical History Surgery Date Site/Laterality Comments FOOT SURGERY TOTAL SHOULDER ARTHROPLASTY MENISCECTOMY BUNIONECTOMY Medical History Medical History Date Comments Arthritis Asymptomatic varicose veins Social History Tobacco Use Types Packs/Day Years Used Date Smoking Tobacco: Never Tobacco Cessation:Counseling Given: Not Answered Alcohol Use Standard Drinks/Week Comments Yes 0 (1 standard drink = 0.6 oz pur e alcohol) RARELY Interpersonal Safety Answer Date Record ed Physical Abuse Unrecognized value 04/02/2024 Verbal Abuse Unrecognized value 04/02/2024 Comments No Sex and Gender Information Value Date Recorded Sex Assigned at Female 04/01/2024 2:52 PM EST Legal Sex Female 8:12 AM EST Gender Identity Female 04/01/2024 2:52 PM EST Sexual Orientation Straight 04/01/2024 2: 52 PM EST Last Filed Vital Signs Vital Sign Reading Time Taken Comments Blood Pressure 105/65 04/02/2024 3:35 PM EST Pulse 64 04/02/2024 3:35 PM EST Temperature 36.5 C (97.7 F) 04/02/2024 3:35 PM EST Respiratory Rate 18 04/02/2024 3:35 PM EST Oxygen Saturation 95% 04/02/2024 3:35 PM EST Inhaled Oxygen Concentration - - Weight 65.3 kg (144 lb) 04/02/2024 12:53 PM EST Height 177.8 cm (5' 10 ) 04/02/2024 12:53 PM EST Body Mass Index 20.66 04/02/2024 12:53 PM EST Plan of Treatment Health Maintenance Due Date Last Done Comments Breast Cancer Screening 1950 Colorectal Cancer Screening: Colonoscopy 1950 DTaP,Tdap,and Td Vaccines (1 - Tdap) 11/15/1970 Pneumococcal Vaccine: 50+ Years (1 of 1 - PCV) 11/15/2001 Zoster Vaccines (1 of 2) 11/15/2001 Falls Risk Assessment 03/18/2024 Hepatitis C Screening 03/18/2024 Medicare Annual Wellness Visit 03/18/2024 Osteoporosis Screening (Bone Density Screening) 03/18/2024 Social Influencers of Health Screening 03/18/2024 Depression Screening 04/30/2024 COVID-19 Vaccine (3 - 2024-2 6 season) 2024 01/11/2021, 12/21/2020 Influenza Vaccine (#1) 2024 RSV Immunization Adult Patients (1 - 1-dose 75+ series) 11/15/2026 HIB Vaccines Aged Out No longer eligi ble based on patient's age to complete this topic HPV Vaccines Aged Out No longer eligi ble based on patient's age to complete this topic Hepatitis A Vaccines Aged Out No long er eligible based on patient's age to complete this topic Hepatitis B Vaccines Aged Out No long er eligible based on patient's age to complete this topic IPV Vaccines Aged Out No longer eligi ble based on patient's age to complete this topic MMR Vaccines Aged Out No longer eligi ble based on patient's age to complete this topic Meningococcal ACWY Vaccine Aged Out N o longer eligible based on patient's age to complete this topic Meningococcal B Vaccine Aged Out No l onger eligible based on patient's age to complete this topic RSV Immunization Patients Under 20 months Aged Out No longer eligible b ased on patient's age to complete this topic Varicella Vaccines Aged Out No longer eligible based on patient's age to complete this topic Medical Devices Implanted Type Area Furnace Mechanic Helper Device Identifier Shelf Expiration Date Model / Serial / Lot Joints Shoulder Joints Shoulder Right: Shoulder Insurance MEDICARE [facility] Care Teams Gis Developer Relationship Specialty Start Date End Date Physician, No Pcp PCP - General 04/02/24
--- OUTSIDE RECORDS SUMMARY | 2025-04-15 11:09 | XMS_ITS | Continuity of Care Document ---
Author Organization [facility], PATRICK De La [facility] 2nd floor Address [address] [place] [address] Assessment No assessment recorded. Plan of Treatment Reminders Order Date Submit Date Provider Last Modified By Organization Details Last Modified Time Details Appointments RECHECK 2025 09:15A M Rodrick London PA-C Not available Not available Not [...] Address Organization Details Recorded Time No complaints [id number] Active Status : 'A'; Not Available [facility] 4 09:15:58 Osteoarthr itis of left knee joint 5737238606370 09 Active 2023 Triny Ferguson PA-C [address], [place], [address] , [facility] 4 12:20:05 Osteoarthr itis of right knee joint 9954028549242 00 Active 2023 Triny Ferguson PA-C [address], [place], [address] , [facility] 4 13:44:36 Bilateral osteoarthr itis of knees 6745597882264 07 Active 2023 Triny Ferguson PA-C [address], [place], [address] , [facility] 11:59:34 Primary gonarthros is, bilateral 283811924 Active 2024 Triny Ferguson PA-C [address], [place], [address] , [facility] 11:38:09 Problem Notes None recorded. Procedures Surgical History Date Name Laterality Status Provider Name and Address Organization Details Recorded Time 5 Knee Kenalog 40 1cc Injection, Bilateral completed Rodrick London PA-C [address], [place], [address], [facility] 02/18/2025 20:54:06 5 Knee Kenalog 40 1cc Injection, Bilateral completed Triny Ferguson PA-C [address], [place], [address], [facility] 11/06/2024 14:23:54 5 Knee Kenalog 40 1cc Injection, Bilateral completed Triny Ferguson PA-C [address], [place], [address], [facility] 08/07/2024 12:46:48 5 Knee Kenalog 40 1cc Injection, Bilateral completed Triny Ferguson PA-C [address], [place], [address], [facility] 05/15/2024 11:37:52 4 Knee Kenalog 40 1cc Injection, Bilateral completed Triny Ferguson PA-C [address], [place], [address], [facility] 02/05/2024 11:59:27 4 Knee Kenalog 40 1cc Injection, Bilateral completed Trinyzulay Ferguson PA-C [address], [place], [address], [facility] 11/07/2023 13:45:40 4 Knee Kenalog 40 1cc Injection, Bilateral completed Triny Revord, PA-C [address] [facility] [address], [place], [address], [place] [facility] [place] [facility] 08/17/2023 10:27:46 Imaging Results None recorded. Procedure [...] Updated DateTime 02/19/2025 177.8 cm 20.8 kg/m2 20864.89 g Rodrick London PA-C [address], [address], [facility] 02/19/2025 08:32:40 Social History Question Answer Notes LastModified by Organizat ion Details LastModified Time Tobacco Smoking Status Never Smoker ANA [place]amon [place] [facility] [place] [facility] 08/17/2023 09:55:30 Have You Ever Been Counseled For Unhealthy Alcohol Use? No Information not available 08/17/2023 What Is Your Relationship Status? Information not available 08/17/2023 Sex: Unknown Functional Status Question Answer Note LastModified by Organizat ion Details LastModified Time How many times per [...] Problems N Vascular Disease N Heart Attack ([place]) N Gastrointestinal Disease N Diabetes N Autoimmune [...] ICD10 Code Diagnosis IMO Codes Diagnosis Note [id number] WANDA RoldanA - [address] [place] [address] 02/19/2025 08:24:46 03/06/2025 14:48:57 Primary gonarthrosis, bilateral [id number] M17.0 [id number] Health Concerns Section Related Observation LastModified by Organization Detai ls LastModified Time None Recorded Concern Status LastModified by Organization Details LastModified Time None Recorded Payers Encounter Date Sequence Insurance Name Policy Number Policy Riggins Covered Member ID Riggins Member ID Guarantor Name 02/19/2025 2 [place] [id number] Korina Reid [place] [id number] Korina Reid Mandeep 02/19/2025 1 [place] [employer] Korina Reid [place] [id number] Korina Reid Mandeep Notes Date Note Type Note Provider Name and Address Organization Details Recorded Time 02/19/2025 text/html I am seeing the patient [...] role of injection therapies both cortisone and viscosupplementati on. Today, injected both the knees with cortisone. Reviewed home exercise program. Patient can return for injections every 3 months if necessary. Briefly discussed the role of total joint arthroplasty if and when conservative management fails and x-ray evaluation worsens. Follow-up p.r.n. Rodrick London PA-C [address] [facility] [address], [place], [address], [facility] [place] [facility] 02/19/2025 08:58:48 OBGyn Episode No OBEpisode recorded.
== END 2025-04-15 11:01 | disposition home or self-care (01) ==
PROVIDERS: PCP Internal Medicine; Visit Provider Internal Medicine
DX: Z00.00 Encounter for general adult medical examination without abnormal findings (principal); M15.9 Polyosteoarthritis, unspecified; R01.1 Cardiac murmur, unspecified

== ENCOUNTER → 2025-04-15 09:37 | Outpatient (BNVA) | payer MEDICARE, SELFPAY | PROVIDERS: PCP Internal Medicine; Visit Provider Internal Medicine | DX: Z00.00 Encounter for general adult medical examination without abnormal findings (principal); R01.1 Cardiac murmur, unspecified; I87.2 Venous insufficiency (chronic) (peripheral); M15.9 Polyosteoarthritis, unspecified | CPT/HCPCS: 96127 ==